=== PATIENT | male | born 1965 | race Caucasian/White ===

== ENCOUNTER 2016-04-23 04:19 | Inpatient (IN) | payer OTHER ==
[~2016-04-23] VITALS: Ht 154.9 cm; Wt 91.8 kg
[2016-04-23 04:42] LABS: HEMATOCRIT 36.4 % (38.0-50.0); MCH 35.1 PG (29.0-34.0); MCHC 35.2 G/DL (30.0-36.0); MCV 99.7 FL (86-99); PLATELET COUNT 88 K/uL (156-360); RBC DIS.WIDTH-CV 13.6 % (11.8-14.6); RBC DIS.WIDTH-SD 47.7 % (39-53); RED BLOOD COUNT 3.65 M/uL (4.00-5.50); WHITE BLOOD COUNT 7.2 K/uL (4.1-10.2)
[2016-04-23 04:57] LABS: CHLORIDE 100 mEq/L (99-109); POTASSIUM 3.5 mEq/L (3.7-5.4); SODIUM 135 mEq/L (136-147)
[2016-04-23 04:59] LABS: GLUCOSE 193 mg/dL (70-99)
[2016-04-23 05:00] LABS: ANION GAP 14 MEQ/L (2-14)
[2016-04-23 05:01] LABS: TOTAL BILIRUBIN 4.4 mg/dL (0.0-1.0)
[2016-04-23 05:02] LABS: ALKALINE PHOSPHATASE 69 IU/L (3-129)
[2016-04-23 05:03] LABS: GFR ESTIMATE (CALCULATED) > 59 mL/min/
[2016-04-23 05:04] LABS: UREA NITROGEN (BUN) 20 mg/dL (9-23)
[2016-04-23] MEDS ORDERED: HYZAAR 50-121 TABLET PO (05:58)
[2016-04-23 06:00] LABS: LIPASE 15 U/L (1.0-51.0)
[2016-04-23 06:14] LABS: ADD MIUA? YES; BILIRUBIN NEGATIVE; BLOOD NEGATIVE; COLOR DK YELLOW ((YELLOW)); GLUCOSE (STRIP) 250; KETONES TRACE; LEUKOCYTES NEGATIVE; NITRITE NEGATIVE; PH, URINE 6.5 (5-8); PROTEIN (STRIP) NEGATIVE; SPECIFIC GRAVITY 1.022 (1.000-1.030)
[2016-04-23 06:29] LABS: EPITHELIAL CELLS RARE; MUCUS NONE SEEN; RED BLOOD CELLS NONE SEEN /HPF (0-5); WHITE BLOOD CELLS 0-5 /HPF (0-5)
[2016-04-23 06:30] LABS: BACTERIA 1+; CASTS NONE SEEN /LPF; CRYSTALS NONE SEEN; UCUL ADDED? NO
[2016-04-23 08:24] LABS: INTER. NORMALIZED RATIO 1.3; PROTHROMBIN TIME 13.4 (9.2-11.2); PTT 29.3 (25-32)
[2016-04-23 09:32] VITALS: BP 143/78
[2016-04-23 11:54] LABS: HEMATOCRIT 34.2 % (38.0-50.0); MCV 99.7 FL (86-99)
[2016-04-23 13:05] VITALS: BP 161/84
[2016-04-23 16:30] VITALS: BP 133/71
[2016-04-23 19:26] VITALS: BP 130/70
[2016-04-24] VITALS (8 sets, daily range): BP systolic 116–140; BP diastolic 59–88
[2016-04-24 04:50] LABS: HEMATOCRIT 32.1 % (38.0-50.0); MCH 35.5 PG (29.0-34.0); MCHC 35.2 G/DL (30.0-36.0); MCV 100.9 FL (86-99); RBC DIS.WIDTH-CV 13.9 % (11.8-14.6); RBC DIS.WIDTH-SD 49.4 % (39-53); RED BLOOD COUNT 3.18 M/uL (4.00-5.50)
[2016-04-24 05:01] LABS: CHLORIDE 106 mEq/L (99-109); POTASSIUM 3.4 mEq/L (3.7-5.4); SODIUM 138 mEq/L (136-147)
[2016-04-24 05:04] LABS: ANION GAP 9 MEQ/L (2-14); GLUCOSE 99 mg/dL (70-99)
[2016-04-24 05:05] LABS: TOTAL BILIRUBIN 3.6 mg/dL (0.0-1.0)
[2016-04-24 05:07] LABS: ALKALINE PHOSPHATASE 58 IU/L (3-129); GFR ESTIMATE (CALCULATED) > 59 mL/min/
[2016-04-24 05:08] LABS: DIRECT BILIRUBIN 1.4 mg/dL (0.0-0.3); UREA NITROGEN (BUN) 12 mg/dL (9-23)
[2016-04-24 05:14] LABS: WHITE BLOOD COUNT 3.6 K/uL (4.1-10.2)
[2016-04-24 06:16] LABS: MEAN PLAT.VOLUME 11.4 uM^3 (9.0-12.4)
[2016-04-24 06:18] LABS: PLATELET COUNT 59 K/uL (156-360)
[2016-04-24 07:36] LABS: Estimated Average Glucose 117 mg/dL (70-123); HEMOGLOBIN A1c (GLYCOHEMOGLOB) 5.7 % HGB (Below 5.7)
[2016-04-25 04:12] VITALS: BP 120/74
[2016-04-25 05:48] LABS: EOSINOPHIL (%) 3.2 % (0-5); EOSINOPHIL COUNT 0.1 K/uL (0-0.3); HEMATOCRIT 33.3 % (38.0-50.0); LYMPHOCYTE COUNT 1.2 K/uL (1.0-2.8); MCH 34.6 PG (29.0-34.0); MCHC 34.8 G/DL (30.0-36.0); MCV 99.4 FL (86-99); MONOCYTE COUNT 0.3 K/uL (0-0.8); NEUTROPHIL (%) 53.1 % (45-76); NEUTROPHIL COUNT 1.8 K/uL (1.8-6.4); PLATELET COUNT 67 K/uL (156-360); RBC DIS.WIDTH-CV 13.8 % (11.8-14.6); RBC DIS.WIDTH-SD 49.7 % (39-53); RED BLOOD COUNT 3.35 M/uL (4.00-5.50); WHITE BLOOD COUNT 3.5 K/uL (4.1-10.2)
[2016-04-25 06:10] LABS: ALKALINE PHOSPHATASE 57 IU/L (3-129); ANION GAP 7 MEQ/L (2-14); CHLORIDE 101 MEQ/L (99-109); GFR ESTIMATE (CALCULATED) > 59 mL/min/; GLUCOSE 99 mg/dL (70-99); POTASSIUM 3.1 MEQ/L (3.7-5.4); SAMPLE HEMOLYSIS CHECK 0; SAMPLE ICTERIC CHECK 1; SAMPLE LIPEMIA CHECK 0; SODIUM 136 MEQ/L (136-147); UREA NITROGEN (BUN) 10 mg/dL (9-23)
[2016-04-25 07:52] VITALS: BP 132/86
[2016-04-25] MEDS ORDERED: PROTONIX40 MG PO (10:02)
[2016-04-25] MEDS ORDERED: KLOR-CON M2020 MEQ PO (10:02)
[2016-04-25 11:32] VITALS: BP 119/69
== END 2016-04-25 15:08 | disposition home or self-care (01) | DRG 378 ==
LOC: EME 04:19 → EDOF 08:19 → 3EAST 08:19
PROVIDERS: Emergency Medicine; Nurse Practitioner Adult Health; Physician Assistant
PROC: 0DJ08ZZ Inspection of Upper Intestinal Tract, Via Natural or Artificial Opening Endoscopic (ICD-10-PCS; principal; 2016-04-23)
DX: K92.2 Gastrointestinal hemorrhage, unspecified (principal); R17 Unspecified jaundice; K31.89 Other diseases of stomach and duodenum; I85.10 Secondary esophageal varices without bleeding; E87.6 Hypokalemia; I10 Essential (primary) hypertension; E78.5 Hyperlipidemia, unspecified; F10.10 Alcohol abuse, uncomplicated; K21.9 Gastro-esophageal reflux disease without esophagitis; M17.0 Bilateral primary osteoarthritis of knee; E66.9 Obesity, unspecified; Z68.38 Body mass index [BMI] 38.0-38.9, adult
CPT/HCPCS: 76705; 80053; 80069; 80076; 81003; 83036; 83690; 85014; 85018; 85025; 85027; 85610; 85730; 86850; 86900; 86901; 93005; 99281; 99285; C9113; J2250; J2405; J3010; J7030

== ENCOUNTER → 2017-07-04 | Outpatient (CLI) | payer OTHER ==
[~2017-07-04] MED LIST: HYZAAR 50-121 TABLET PO; KLOR-CON M2020 MEQ PO; PROTONIX40 MG PO
== END | disposition home or self-care (01) ==
LOC: CDC 10:42
DX: Z01.810 Encounter for preprocedural cardiovascular examination (principal); R94.31 Abnormal electrocardiogram [ECG] [EKG]
CPT/HCPCS: 93000

== ENCOUNTER 2017-07-13 05:37 | Day surgery (SDC) | payer OTHER ==
[~2017-07-13] VITALS: Ht 175.3 cm; Wt 92.9 kg
[2017-07-13 06:48] VITALS: BP 134/85
[2017-07-13] MEDS ORDERED: NORCO 5/3251 TABLET PO (08:47)
[2017-07-13 10:12] VITALS: BP 143/89
[2017-07-13 11:22] VITALS: BP 142/81
[2017-07-13 12:59] VITALS: BP 130/82
== END 2017-07-13 12:59 | disposition home or self-care (01) ==
LOC: SDC
PROC: 0YU50JZ Supplement Right Inguinal Region with Synthetic Substitute, Open Approach (ICD-10-PCS; principal; 2017-07-13)
DX: K40.90 Unilateral inguinal hernia, without obstruction or gangrene, not specified as recurrent (principal); K70.9 Alcoholic liver disease, unspecified; E78.5 Hyperlipidemia, unspecified; I10 Essential (primary) hypertension; E66.9 Obesity, unspecified; Z68.33 Body mass index [BMI] 33.0-33.9, adult; Z83.3 Family history of diabetes mellitus; Z82.49 Family history of ischemic heart disease and other diseases of the circulatory system
CPT/HCPCS: C1781; J0330; J0690; J1100; J1170; J2250; J2405; J3010; S0020

== ENCOUNTER → 2017-07-26 | Outpatient (CLI) | payer OTHER ==
[~2017-07-26] MED LIST changes: +NORCO 5/3251 TABLET PO; +SPIRONOLACTONE25 MG PO
== END | disposition home or self-care (01) ==
LOC: RAD 08:03
PROC: 0W9G3ZZ Drainage of Peritoneal Cavity, Percutaneous Approach (ICD-10-PCS; principal; 2017-07-26)
DX: R18.8 Other ascites (principal)
CPT/HCPCS: 49083

== ENCOUNTER 2017-10-12 16:02 | Day surgery (SDC) | payer OTHER ==
[~2017-10-12] VITALS: Ht 177.8 cm; Wt 86.2 kg
[2017-10-12 17:12] LABS: HEMATOCRIT 35.3 % (38.0-50.0); HEMOGLOBIN 12.9 G/DL (12.5-16.6); MCH 36.1 PG (29.0-34.0); MCHC 36.5 G/DL (30.0-36.0); MCV 98.9 FL (86-99); PLATELET COUNT 75 K/uL (156-360); RBC DIS.WIDTH-CV 14.3 % (11.8-14.6); RBC DIS.WIDTH-SD 52.5 % (39-53); RED BLOOD COUNT 3.57 M/uL (4.00-5.50); WHITE BLOOD COUNT 3.6 K/uL (4.1-10.2)
[2017-10-12 17:19] LABS: INTER. NORMALIZED RATIO 1.4
[2017-10-12 17:23] LABS: CHLORIDE 106 mEq/L (99-109); POTASSIUM 4.1 mEq/L (3.7-5.4); SODIUM 137 mEq/L (136-147)
[2017-10-12 17:25] LABS: GLUCOSE 137 mg/dL (70-99); TOTAL PROTEIN 7.4 g/dL (6.4-8.3)
[2017-10-12 17:27] LABS: TOTAL BILIRUBIN 2.5 mg/dL (0.0-1.0)
[2017-10-12 17:29] LABS: ALKALINE PHOSPHATASE 98 IU/L (3-129); CREATININE 0.8 mg/dL (0.6-1.3); GFR ESTIMATE (CALCULATED) > 59 mL/min/ (58.99-99999)
[2017-10-12 17:30] LABS: UREA NITROGEN (BUN) 18 mg/dL (9-23)
[2017-10-12 17:31] LABS: AST (GOT) 63 IU/L (2-34)
[2017-10-12 17:32] LABS: ALT (GPT) 39 IU/L (3-49)
[2017-10-12] MEDS ORDERED: OXAYDO5 MG PO (19:43)
[2017-10-12 21:23] VITALS: BP 111/64
[2017-10-12 23:55] VITALS: BP 103/62
[2017-10-13 03:13] VITALS: BP 98/59
[2017-10-13 06:04] LABS: HEMATOCRIT 35.3 % (38.0-50.0); HEMOGLOBIN 12.3 G/DL (12.5-16.6); MCH 34.7 PG (29.0-34.0); MCHC 34.8 G/DL (30.0-36.0); MCV 99.7 FL (86-99); PLATELET COUNT 62 K/uL (156-360); RBC DIS.WIDTH-CV 14.5 % (11.8-14.6); RBC DIS.WIDTH-SD 53.6 % (39-53); RED BLOOD COUNT 3.54 M/uL (4.00-5.50); WHITE BLOOD COUNT 4.7 K/uL (4.1-10.2)
[2017-10-13 06:27] LABS: ALBUMIN 2.5 G/DL (3.2-4.8); ALKALINE PHOSPHATASE 65 IU/L (3-129); ALT (GPT) 29 IU/L (3-49); AST (GOT) 50 IU/L (2-34); CHLORIDE 108 MEQ/L (99-109); CREATININE 0.6 MG/DL (0.6-1.3); GFR ESTIMATE (CALCULATED) > 59 mL/min/ (58.99-99999); GLUCOSE 188 mg/dL (70-99); POTASSIUM 4.6 MEQ/L (3.7-5.4); SODIUM 135 MEQ/L (136-147); TOTAL BILIRUBIN 2.3 MG/DL (0.0-1.0); TOTAL PROTEIN 6.1 G/DL (6.4-8.3); UREA NITROGEN (BUN) 17 mg/dL (9-23)
[2017-10-13 08:08] VITALS: BP 103/60
== END 2017-10-13 11:30 | disposition home or self-care (01) ==
LOC: EME 16:02 → SDC 18:06 → EME 18:06 → 2SOUTH 19:34 → ENRESERV 20:34 → 2EAST 20:55
PROVIDERS: Surgery
DX: K42.0 Umbilical hernia with obstruction, without gangrene (principal); K55.9 Vascular disorder of intestine, unspecified; F10.21 Alcohol dependence, in remission; K70.31 Alcoholic cirrhosis of liver with ascites; D69.6 Thrombocytopenia, unspecified; E88.09 Other disorders of plasma-protein metabolism, not elsewhere classified; K76.6 Portal hypertension; I10 Essential (primary) hypertension
CPT/HCPCS: 80053; 85027; 85610; 85730; 93005; 94799; 99281; 99285; C1781; G0378; J0690; J2270; J2710; J7643